=== PATIENT | female | born 1990 | race African-American/Black ===

== ENCOUNTER 2021-02-16 21:47 | Emergency (ER) | payer OTHER ==
[~2021-02-16] VITALS: Ht 175.3 cm; Wt 124.7 kg
[2021-02-16] MEDS ORDERED: ALLEGRA ALLERG180 MG PO (23:34)
== END 2021-02-17 00:12 | disposition home or self-care (01) ==
LOC: ER 21:47
DX: T78.1XXA Other adverse food reactions, not elsewhere classified, initial encounter (principal); R06.02 Shortness of breath